=== PATIENT | female | born 1990 | race Hispanic/Latino ===

== ENCOUNTER 2017-08-09 17:16 | Emergency (ER) | payer BC ==
[2017-08-09 17:26] VITALS: BP 148/84; PULSE 73; RESP 16; TEMP 97.4; O2SAT 99
--- NOTE | 2017-08-09 18:13 | ED PDOC ---
HPI: Head Injury Time Seen by Provider: 08/09/17 17:42 Chief Complaint (Nursing): Headache Chief Complaint (Provider): nausea, headache History Per: Patient History/Exam Limitations: no limitations Onset/Duration Of Symptoms: Days (2) Patient States: Fell Striking Head Severity: Moderate Loss Of Consciousness: No Additional Complaint(s): 27yo female states was out drinking alcohol wednesday night, drank to excess, got out of a car and vomited, fell striking left side of face/head. Awoke yesterday "hungover" with several episodes vomiting. Today felt dizzy, somewhat forgetful with sensitivity to light. She also felt depressed and anxious, but denies suicidal or homicidal thoughts. States recently started medication for depression but no hospitalizations for such. Past Medical History Reviewed: Historical Data, Nursing Documentation, Vital Signs Vital Signs: Last Vital Signs Temp 97.4 F L 08/09/17 17:23 Pulse 73 08/09/17 17:23 Resp 16 08/09/17 17:23 BP 148/84 08/09/17 17:23 Pulse Ox 99 08/09/17 17:23 - Medical History Other PMH: kidney stones, concussion last year - Surgical History Surgical History: No Surg Hx - Family History Family History: States: Unknown Family Hx - Living Arrangements Living Arrangements: With Friends/Others - Social History Current smoker - smoking cessation education provided: No Alcohol: Social Drugs: Denies - Allergies Allergies/Adverse Reactions: Allergies Allergy/AdvReac Type Severity Reaction Status Date / Time No Known Allergies Allergy Verified 08/09/17 17:23 Review of Systems ROS Statement: Except As Marked, All Systems Reviewed And Found Negative Constitutional: Positive for: Malaise. Negative for: Fever, Chills, Weakness Eyes: Positive for: Other (light sensitivity). Negative for: Vision Change, Eyelid Inflammation, Redness ENT: Negative for: Ear Pain, Ear Discharge, Nose Pain, Throat Pain, Throat Swelling Cardiovascular: Negative for: Chest Pain Respiratory: Negative for: Cough Gastrointestinal: Negative for: Nausea, Vomiting Genitourinary Female: Negative for: Dysuria, Vaginal Bleeding Musculoskeletal: Negative for: Neck Pain, Arm Pain, Back Pain, Leg Pain Skin: Negative for: Rash, Lesions, Jaundice Neurological: Positive for: Headache, Dizziness. Negative for: Weakness, Numbness, Incoordination, Change in Speech, Confusion, Seizures, Altered Mental Status Psych: Positive for: Anxiety, Depression. Negative for: Suicidal ideation, Withdrawal Physical Exam - Reviewed Nursing Documentation Reviewed: Yes Vital Signs Reviewed: Yes - Physical Exam Appears: Positive for: Well, Non-toxic, No Acute Distress Head Exam: Positive for: ATRAUMATIC, NORMAL INSPECTION, NORMOCEPHALIC Skin: Positive for: Normal Color, Warm, DRY Eye Exam: Positive for: EOMI, Normal appearance, PERRL ENT: Positive for: Normal ENT Inspection, TM Is/Are (no hemotympanum), Other ( no facial trauma). Negative for: Pharyngeal Erythema, Tonsillar Exudate Neck: Positive for: Normal, Painless ROM Cardiovascular/Chest: Positive for: Regular Rate, Rhythm Respiratory: Positive for: CNT, Normal Breath Sounds Gastrointestinal/Abdominal: Negative for: Tenderness, Guarding Back: Positive for: Normal Inspection Extremity: Positive for: Normal ROM DTR - Knee (R): 2+ DTR - Knee (L): 2+ Neurologic/Psych: Positive for: Alert, Oriented, Mood/Affect (anxious, good insight. communicative with appropriate eye contact and judgement), Gait ( steady to bathroom). Negative for: Motor/Sensory Deficits, Aphasia, Facial Droop - Laboratory Results Result Diagrams: 08/09/17 18:38 08/09/17 18:38 - ECG O2 Sat by Pulse Oximetry: 99 Medical Decision Making Medical Decision Making: Workup initiated for clinical post concussive syndrome. Patient wished to avoid further radiation exposure as already multiple CT scans to body for prior concussion and kidney stones, neck pain. Will initiate IVF toradol and zofran, and check basic labs, if no improvement will recommend CT. Now 30+ hrs since fall without focal neurologic symptoms- only co Disposition - Clinical Impression Clinical Impression: Post concussion syndrome - Patient ED Disposition Is Patient to be Admitted: Transfer of Care - Disposition Disposition: Transfer of Care Disposition Time: 19:23 Condition: STABLE Forms: PO-MO (Bulgarian) Patient Signed Over To: Cristhian Wiley Handoff Comments: pending re-eval and dispo
[2017-08-09] MEDS ORDERED: Dextrose 5%/0.9% NS 1,000 ML IV SCH (18:15)
[2017-08-09 18:42] LABS: BASO # 0.1 K/uL (0.0-0.2); EOS % 0.4 % (0.0-4.0); HEMATOCRIT 37.8 % (34.0-47.0); LYMPH # 1.9 K/uL (1.0-4.3); LYMPH % 30.1 % (20.0-40.0); MEAN CELL VOLUME 87.7 fl (81.0-99.0); MEAN CORPUSCULAR HEMOGLOBIN 29.1 pg (27.0-31.0); MEAN CORPUSCULAR HGB CONC 33.2 g/dL (33.0-37.0); MEAN PLATELET VOLUME 8.5 fl (7.2-11.7); MONO # 0.4 K/uL (0.0-0.8); MONO % 7.1 % (0.0-10.0); NEUT # 3.8 K/uL (1.8-7.0); NEUT % 61.4 % (50.0-75.0); NRBC % 0.1 % (0.0-0.0); RED CELL DISTRIBUTION WIDTH 12.9 % (11.5-14.5); WHITE BLOOD COUNT 6.1 K/uL (4.8-10.8)
[2017-08-09 18:54] LABS: ALB/GLOB RATIO 1.5 (1.0-2.1); ALKALINE PHOSPHATASE 29 U/L (38-126); ALT/SGPT 34 U/L (9-52); AST/SGOT 30 U/L (14-36); BILIRUBIN,TOTAL 0.3 mg/dl (0.2-1.3); BLOOD UREA NITROGEN 11 mg/dl (7-17); CALCIUM 9.6 mg/dL (8.4-10.2); CARBON DIOXIDE 26 mmol/L (22-30); CHLORIDE 106 mmol/L (98-107); GFR AFRICAN-AMERICAN > 60; GLUCOSE,RANDOM 92 mg/dL (65-105); POTASSIUM 4.5 MMOL/L (3.6-5.0); SODIUM 142 mmol/l (132-148)
--- NOTE | 2017-08-09 19:23 | ED PDOC ---
- Laboratory Results Result Diagrams: 08/09/17 18:38 08/09/17 18:38 - ECG O2 Sat by Pulse Oximetry: 99 (RA) Pulse Ox Interpretation: Normal Medical Decision Making Medical Decision Making: Patient signed out to provider at [address] Chavarria pending reevaluation and labs. 1956 Patient has changed her mind and is now requesting a CT scan. She was made aware of the risk of radiation but patient still insists that she wants the CT she states that she is 'psyching herself out". 2022 CT Head Without Intravenous Contrast COMPARISON: No relevant comparison exam is available at the time of interpretation. FINDINGS: Brain: No acute intracranial hemorrhage. No abnormal extra-axial fluid collection. No herniation. Patent basal cisterns. Preserved patel-white matter differentiation. No evidence of acute ischemia. No evident intracranial mass. Ventricles: No hydrocephalus. Bones/joints: No evident acute fracture. Soft tissues: No acute findings. Sinuses: The imaged paranasal sinuses are clear. Mastoid air cells: The mastoid air cells are clear. IMPRESSION: No acute findings. 2045 Patient is feeling better, is medically stable and requires no further treatment in the ED at this [facility]. Patient will be discharged home. Scribe Attestation Documented by Odilia Mcmillan acting as a scribe for Cristhian Wiley MD. Provider Attestation All medical record entries made by the Scribe were at my direction and personally dictated by me. I have reviewed the chart and agree that the record accurately reflects my personal performance of the history, physical exam, medical decision making, and the department course for this patient. I have also personally directed, reviewed, and agree with the discharge instructions and disposition. Disposition Counseled Patient/Family Regarding: Studies Performed, Diagnosis - Clinical Impression Clinical Impression: Post concussion syndrome - POA Present On Arrival: None - Disposition Disposition: Routine/Home Disposition Time: 20:46 Condition: STABLE Forms: Dizmo (Somali)
--- NOTE | 2017-08-10 08:30 | CT ---
PROCEDURE: CT HEAD WITHOUT CONTRAST. HISTORY: headache COMPARISON: None available. TECHNIQUE: Axial computed tomography images were obtained through the head/brain without intravenous contrast. Radiation dose: Total exam DLP = 822.67 mGy-cm. This CT exam was performed using one or more of the following dose reduction techniques: Automated exposure control, adjustment of the mA and/or kV according to patient size, and/or use of iterative reconstruction technique. FINDINGS: HEMORRHAGE: No intracranial hemorrhage. BRAIN: No mass effect or edema. No atrophy or chronic microvascular ischemic changes. VENTRICLES: Unremarkable. No hydrocephalus. CALVARIUM: Unremarkable. PARANASAL SINUSES: Unremarkable as visualized. No significant inflammatory changes. MASTOID AIR CELLS: Unremarkable as visualized. No inflammatory changes. OTHER FINDINGS: None. IMPRESSION: Normal CT of the Head. No intracranial mass, hemorrhage or evidence of acute infarct. Preliminary interpretation of this examination was reported by [facility] at 8:42 p.m. on 08/09/2017. There is concurrence of this report with the preliminary interpretation.
== END 2017-08-09 21:00 | disposition home or self-care (01) ==
LOC: H.ER 17:16
DX: F07.81 Postconcussional syndrome (principal)
CPT/HCPCS: 70450; 80053; 81025; 85025; 96361; 96374; 96375; 99285; J1885; J2405; J7042